=== PATIENT | male | born 1955 | race Caucasian/White ===

== ENCOUNTER 2018-06-15 09:37 | Day surgery (SDC) | payer OTHER ==
[~2018-06-15] VITALS: Ht 170.2 cm; Wt 105.2 kg
[~2018-06-15 09:37] MED LIST: ADULT ASPIRIN81 MG PO; CALPHRON667 MG PO; FEOSOL45 MG PO; GLUCOTROL XL10 MG PO; LEVEMIR FL100 UNIT/1 SC; LOPRESSOR50 MG PO; LOVASTATIN40 MG PO; NOVOLOG PE100 UNITS/ SC; PROCARDIA XL60 MG PO; RENA-VITE RX T1 EACH PO; VITAMIN D35000 UNIT PO
[2018-06-15 10:16] LABS: HEMATOCRIT 33.4 % (38.0-50.0); HEMOGLOBIN 11.6 G/DL (12.5-16.6); MCH 30.9 PG (29.0-34.0); MCHC 34.7 G/DL (30.0-36.0); MCV 89.1 FL (86-99); PLATELET COUNT 122 K/uL (156-360); RBC DIS.WIDTH-CV 12.8 % (11.8-14.6); RBC DIS.WIDTH-SD 41.3 % (39-53); RED BLOOD COUNT 3.75 M/uL (4.00-5.50); WHITE BLOOD COUNT 7.2 K/uL (4.1-10.2)
[2018-06-15 10:26] VITALS: BP 165/86
[2018-06-15 10:35] LABS: CHLORIDE 98 MEQ/L (99-109); CREATININE 6.4 MG/DL (0.6-1.3); GFR ESTIMATE (CALCULATED) 9 mL/min/ (58.99-99999); GLUCOSE 392 mg/dL (70-99); POTASSIUM 4.7 MEQ/L (3.7-5.4); SODIUM 136 MEQ/L (136-147); UREA NITROGEN (BUN) 46 mg/dL (9-23)
[2018-06-15 18:00] VITALS: BP 174/78
[2018-06-15 18:35] VITALS: BP 168/84
[2018-06-15 18:40] VITALS: BP 182/83
== END 2018-06-15 18:50 | disposition home or self-care (01) ==
LOC: SDC 09:37
PROVIDERS: Surgery
DX: E11.22 Type 2 diabetes mellitus with diabetic chronic kidney disease (principal); I12.0 Hypertensive chronic kidney disease with stage 5 chronic kidney disease or end stage renal disease; N18.6 End stage renal disease; Z99.2 Dependence on renal dialysis; Z87.891 Personal history of nicotine dependence; Z79.4 Long term (current) use of insulin; Z79.82 Long term (current) use of aspirin; Z86.73 Personal history of transient ischemic attack (TIA), and cerebral infarction without residual deficits
CPT/HCPCS: 80048; 82948; 85027; 87641; 93005; J0690; J1644; J2250; J2720; J3010